=== PATIENT | male | born 1995 | race Two or more races ===

== ENCOUNTER 2018-10-03 10:24 | Emergency (ER) | payer SELFPAY ==
[~2018-10-03] VITALS: Ht 167.6 cm; Wt 86.2 kg
[2018-10-03 10:56] VITALS: BP 160/90
[2018-10-03] MEDS ORDERED: AZIT2.5D4 RIGHTEYE (11:54)
--- NOTE | 2018-10-03 13:22 | PHYS DOC ---
Past Medical History Past Medical History: No Pertinent History Past Surgical History: No Surgical History Alcohol Use: None Drug Use: None Adult General Chief Complaint Chief Complaint: EYE PROBLEMS HPI HPI Patient is a 23 year old male with cc of red itchy somewhat painful right eye. presumed intimate partner his girlfriend has also checked in with identical symptoms at the same time. He's had these symptoms for 3 days he's been using oflox with minimal relief Allergies Allergies Allergies Coded Allergies Type Severity Reaction Last Updated Verified No Known Drug Allergies 10/03/18 No Physical Exam Physical Exam Constitutional: Well developed, well nourished, no acute distress, non-toxic appearance. [] HENT: Normocephalic, atraumatic, bilateral external ears normal, oropharynx moist, no oral exudates, nose normal. [] Eyes: right eye conjunctiva is injected. No uveitis no flare seen cornea does not stain extraocular movements are intact there is no periorbital swelling or edema Neck: Normal range of motion, no tenderness, supple, no stridor. [] Pulmonary: Normal respiratory effort no increased work of breathing no obvious chest wall trauma Extremities: No tenderness, no cyanosis, no clubbing, ROM intact, no edema. [] Neurologic: Alert and oriented X 3, normal motor function, normal sensory function, no focal deficits noted. [] Psychologic: Affect normal, judgement normal, mood normal. [] Current Patient Data Vital Signs Vital Signs Date Time Temp Pulse Resp B/P (MAP) Pulse Ox O2 Delivery O2 Flow Rate FiO2 10/03/18 10:56 99.9 81 16 160/90 (113) 98 Room Air 99.9 EKG EKG [] Radiology/Procedures Radiology/Procedures [] Course & Med Decision Making Course & Med Decision Making Pertinent Labs and Imaging studies reviewed. (See chart for details) []23-year-old male presenting with conjunctivitis of the right eye. It appears to be resistant to oflox. Differential would include viral versus bacterial v chlamdyial given intimate partner has same sympoms v. less liekly uveitis really no photophobia. 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 at any rate no emergency intervention or procedure needed, so In light of that I have opted to do conjunctival cultures switched to azithromycin drops recommended follow-up here in 2-3 days to recheck the cultures and have additional planning as needed if he does not improve. Aidee Disclaimer Jessicaon Disclaimer This electronic medical record was generated, in whole or in part, using a voice recognition dictation system. Departure Departure Impression: Primary Impression: Conjunctivitis Disposition: HOME, SELF-CARE Condition: STABLE Referrals: Aaliyah CARMICHAEL MD Patient Instructions: Conjunctivitis (Viral and Bacterial) Scripts Azithromycin (AZASITE) 2.5 Ml Drops 1 DROP RIGHTEYE BID, #1 BOT take 1 drop in affected eye bid, then 1 drop into affected eye daily for the next five days. Prov: CHAR ZAVALA MD 10/03/18 CHAR ZAVALA MD Oct 03, 2018 13:21
== END 2018-10-03 12:07 | disposition home or self-care (01) ==
LOC: ER 10:24
DX: H10.9 Unspecified conjunctivitis (principal)
CPT/HCPCS: 87071; 87075; 99283

== ENCOUNTER 2018-10-05 14:02 | Emergency (ER) | payer SELFPAY ==
[~2018-10-05] VITALS: Ht 167.6 cm; Wt 86.2 kg
[~2018-10-05 14:02] MED LIST: AZIT2.5D4 RIGHTEYE
[2018-10-05] MEDS ORDERED: TETRACAINE 0.5% OPHTH SOLUTION 4ML BOTTLE. OD STA (14:11)
[2018-10-05 14:26] VITALS: BP 142/99
[2018-10-05] MEDS: cefTRIAXone IM 250 MG VIAL IM ONE (14:53)
[2018-10-05] MEDS: PROPARACAINE/FLUORESCEIN 0.5 ML OPHTH DROPS. OD ONE (14:54)
[2018-10-05] MEDS: AZITHROMYCIN 250 MG TABLET. PO ONE (14:54)
--- NOTE | 2018-10-05 14:56 | PHYS DOC ---
Past Medical History Past Medical History: No Pertinent History Past Surgical History: No Surgical History Alcohol Use: None Drug Use: None Adult General Chief Complaint Chief Complaint: EYE PROBLEMS HPI HPI Patient is a 23 year old m p/w red eye. took aizthro drops and it is not better so wanted to come get checked out. girlfriend had same thing she is getting better. no fever. vision is okay,. Current Medications Current Medications Current Medications Medications (Trade) Dose Ordered Sig/Peyman Start Time Stop Time Status Last Admin Dose Admin Azithromycin (Zithromax) 1,000 mg 1X ONCE 10/05/18 14:45 10/05/18 14:46 DC Ceftriaxone Sodium (Rocephin Im) 250 mg 1X ONCE 10/05/18 14:45 10/05/18 14:46 DC Proparacaine HCl/ Fluorescein Sodium (Flucaine Eye Drops) 1 drop 1X ONCE 10/05/18 14:30 10/05/18 14:31 DC Tetracaine HCl (Tetracaine) 1 drop 1X STAT 10/05/18 14:11 10/05/18 14:15 DC Allergies Allergies Allergies Coded Allergies Type Severity Reaction Last Updated Verified No Known Drug Allergies 10/03/18 No Physical Exam Physical Exam Constitutional: Well developed, well nourished, no acute distress, non-toxic appearance. [] HENT: Normocephalic, atraumatic, bilateral external ears normal, oropharynx moist, no oral exudates, nose normal. [] Eyes: right conj injected cornea normal iop 22 va 20/40 Neck: Normal range of motion, no tenderness, supple, no stridor. [] Extremities: No tenderness, no cyanosis, no clubbing, ROM intact, no edema. [] Neurologic: Alert and oriented X 3, normal motor function, normal sensory function, no focal deficits noted. [] Psychologic: Affect normal, judgement normal, mood normal. [] Current Patient Data Vital Signs Vital Signs Date Time Temp Pulse Resp B/P (MAP) Pulse Ox O2 Delivery O2 Flow Rate FiO2 10/05/18 14:26 98.2 70 19 142/99 (113) 98 Room Air 98.2 EKG EKG [] Radiology/Procedures Radiology/Procedures [] Course & Med Decision Making Course & Med Decision Making Pertinent Labs and Imaging studies reviewed. (See chart for details) []d/w dr ricardo from ophtho we discussed case, i will tx for consideration of chlam/gc in er with ctx and azithro and he can see patient in [facility] we will send pt over. Dragon Disclaimer Dragon Disclaimer This electronic medical record was generated, in whole or in part, using a voice recognition dictation system. Departure Departure Impression: Primary Impression: Conjunctivitis Disposition: 01 HOME, SELF-CARE Condition: STABLE Referrals: NO PCP (PCP) DEWEY RICARDO Patient Instructions: Conjunctivitis (Viral and Bacterial) CHAR ZAVALA MD Oct 05, 2018 14:56
== END 2018-10-05 14:55 | disposition home or self-care (01) ==
LOC: ER 14:02
DX: H10.89 Other conjunctivitis (principal)
CPT/HCPCS: 96372; 99283; J0696; Q0144

== ENCOUNTER 2019-06-13 23:28 | Emergency (ER) | payer SELFPAY ==
[~2019-06-13] VITALS: Ht 167.6 cm; Wt 97.5 kg
[2019-06-13 23:30] VITALS: BP 164/79
[2019-06-13] MEDS ORDERED: AMOX1TAB61 PO (23:56)
--- NOTE | 2019-06-13 23:56 | PHYS DOC ---
Past Medical History Past Medical History: No Pertinent History Past Surgical History: No Surgical History Alcohol Use: None Drug Use: None Adult General Chief Complaint Chief Complaint: SORE THROAT HPI HPI Patient is a 24 year old -year-old male that presents with a sore throat ongoing since yesterday. The patient states she's been running fevers at home, having sore throat, denies cough, also has anterior lymph node swelling on his right patient rates his pain 7 out of 10 in severity and sharp and throbbing. The patient states that he took antipyretics 2 hours before arrival. Review of Systems Review of Systems Constitutional: Reports subjective fever or chills [] Eyes: Denies change in visual acuity, redness, or eye pain [] HENT: Reports sore throat [] Respiratory: Denies cough or shortness of breath [] Cardiovascular: No additional information not addressed in HPI [] GI: Denies abdominal pain, nausea, vomiting, bloody stools or diarrhea [] : Denies dysuria or hematuria [] Musculoskeletal: Denies back pain or joint pain [] Integument: Denies rash or skin lesions [] Neurologic: Denies headache, focal weakness or sensory changes [] Endocrine: Denies polyuria or polydipsia [] Complete systems were reviewed and found to be within normal limits, except as documented in this note. Allergies Allergies Allergies Coded Allergies Type Severity Reaction Last Updated Verified No Known Drug Allergies 10/03/18 No Physical Exam Physical Exam Constitutional: Well developed, well nourished, no acute distress, non-toxic appearance. [] HENT: Normocephalic, atraumatic, bilateral external ears normal, oropharynx moist, tonsils are 3+/4 with white oral exudates, uvula is midline, nose normal. [] Eyes: PERRLA, EOMI, conjunctiva normal, no discharge. [] Neck: Normal range of motion, lymph node tenderness to anterior neck, supple, no stridor. [] Cardiovascular:Heart rate regular rhythm, no murmur [] Lungs & Thorax: Bilateral breath sounds clear to auscultation [] Abdomen: Bowel sounds normal, soft, no tenderness, no masses, no pulsatile masses. [] Skin: Warm, dry, no erythema, no rash. [] Back: No tenderness, no CVA tenderness. [] Extremities: No tenderness, no cyanosis, no clubbing, ROM intact, no edema. [] Neurologic: Alert and oriented X 3, normal motor function, normal sensory function, no focal deficits noted. [] Psychologic: Affect normal, judgement normal, mood normal. [] EKG EKG [] Radiology/Procedures Radiology/Procedures [] Course & Med Decision Making Course & Med Decision Making Pertinent Labs and Imaging studies reviewed. (See chart for details) Centor score of 4. Has sore throat with exudate, fever, lymph node involvement without cough. Will treat with Augmentin. Dragon Disclaimer Dragon Disclaimer This electronic medical record was generated, in whole or in part, using a voice recognition dictation system. Departure Departure Impression: Primary Impression: Strep pharyngitis Disposition: HOME, SELF-CARE Condition: STABLE Referrals: NO PCP (PCP) Patient Instructions: Strep Throat Additional Instructions: Thank you for visiting [facility]. We appreciate you trusting us with your care. If any additional problems come up don't hesitate to return to visit us. Please follow up with your primary care provider so they can plan additional care if needed and know about the problem that you had. If symptoms worsen come back to the Emergency Department. Any concerning symptoms that start such as chest pain, shortness of air, weakness or numbness on one side of the body, running high fevers or any other concerning symptoms return to the ER. You have been prescribed an antibiotic today to help fight your infection. Please take all of the antibiotic as directed. If after 48 hours the infection is not improving, please return for more care. If the infection worsens, return to ER for additional care. Scripts Amoxicillin/Potassium Clav (AUGMENTIN 875-125 TABLET) 1 Each Tablet 1 TAB PO BID for 10 Days, #20 TAB Prov: KENDRICK BELL APRN 06/13/19 KENDRICK BELL APRN Jun 13, 2019 23:56
== END 2019-06-14 00:05 | disposition home or self-care (01) ==
LOC: ER 23:28
DX: J02.0 Streptococcal pharyngitis (principal); B95.5 Unspecified streptococcus as the cause of diseases classified elsewhere
CPT/HCPCS: 99283